=== PATIENT | male | born 1995 | race African-American/Black ===

== ENCOUNTER 2021-04-20 14:45 | Inpatient (IN) | payer SELFPAY ==
[~2021-04-20] VITALS: Ht 182.9 cm; Wt 104.3 kg
[2021-04-20 19:12] LABS: BASOPHILS % 0.4 % (0.0-2.0); EOSINOPHILS % 0.8 % (0.0-5.0); HEMATOCRIT. 48.9 % (42.0-52.0); HEMOGLOBIN. 16.2 g/dL (14.0-18.0); LYMPHOCYTES % 30.9 % (20.0-50.0); MEAN CORPUSCULAR HEMOGLOBIN 27.6 pg (28.0-32.0); MEAN CORPUSCULAR VOLUME 83.3 fL (80.0-94.0); MEAN PLATELET VOLUME 9.5 fl (7.4-10.4); MONOCYTES % 6.9 % (2.0-8.0); PLATELET 202 x1000/uL (130-400); RED BLOOD CELL COUNT 5.87 mill/uL (4.7-6.1); RED CELL DISTRIBUTION WIDTH 13.7 % (11.6-14.6)
[2021-04-20 19:21] LABS: CHLORIDE 108 mEq/L (98-107)
[2021-04-20 19:28] LABS: ETHANOL BLOOD < 10 mg/dL
[2021-04-20 20:05] LABS: CLARITY URINE CLEAR (CLEAR); COLOR URINE YELLOW (YELLOW); KETONES URINE TRACE (NEGATIVE); LEUKOCYTE ESTERASE URINE NEGATIVE (NEGATIVE); NITRITE URINE NEGATIVE (NEGATIVE); OCCULT BLOOD URINE NEGATIVE (NEGATIVE); PH URINE 5.5 (4.5-8.0); PROTEIN URINE NEGATIVE (NEGATIVE); SPECIFIC GRAVITY URINE 1.023 (1.005-1.030)
[2021-04-20 20:28] LABS: *AMPHETAMINES SCREEN URINE NEGATIVE (NEGATIVE); *BARBITURATES SCREEN URINE NEGATIVE (NEGATIVE)
[2021-04-20 20:29] LABS: *BENZODIAZEPINES SCREEN URINE NEGATIVE (NEGATIVE); *COCAINE SCREEN URINE NEGATIVE (NEGATIVE); CANNABINOID URINE SCREEN PRESUMTIVE POSITIVE (NEGATIVE); METHADONE URINE SCREEN NEGATIVE (NEGATIVE); OPIATES URINE SCREEN NEGATIVE (NEGATIVE); PHENCYCLIDINE URINE SCREEN NEGATIVE (NEGATIVE)
[2021-04-21 16:00] VITALS: BP 125/79
[2021-04-21] MEDS ORDERED: LORAZEPAM 2MG/ML CPJ IV PRN (16:15)
[2021-04-21] MEDS ORDERED: ONDANSETRON HCL 4MG/2ML INJ IV PRN (16:15)
[2021-04-21] MEDS ORDERED: ACETAMINOPHEN 325MG TABLET PO PRN (16:15)
[2021-04-21 16:56] VITALS: BP 125/79
[2021-04-21] MEDS ORDERED: ARIP30TA2 MT (17:10)
[2021-04-21] MEDS ORDERED: BENZ1TAB7 MT (17:11)
[2021-04-21 20:00] VITALS: BP 115/58
[2021-04-22] VITALS (7 sets, daily range): BP systolic 104–139; BP diastolic 55–88
[2021-04-23 04:00] VITALS: BP 121/58
[2021-04-23 08:00] VITALS: BP 119/76
[2021-04-23 12:00] VITALS: BP 109/60
[2021-04-23 16:00] VITALS: BP 108/72
[2021-04-23 20:00] VITALS: BP 115/57
[2021-04-24] VITALS: BP 105/66
[2021-04-24 04:00] VITALS: BP 100/50
[2021-04-24 08:00] VITALS: BP 100/50
[2021-04-24 11:07] VITALS: BP 100/56
[2021-04-24 12:00] VITALS: BP 105/50
== END 2021-04-24 13:15 | disposition home or self-care (01) | DRG 751 ==
LOC: ER 15:43 → EDBD 04-21 10:32 → 8WST 04-21 10:32 → ENRESERV 04-21 14:40
PROVIDERS: ADMIT Internal Medicine Nephrology; ATTEND Internal Medicine Nephrology
DX: F23 Brief psychotic disorder (principal); F12.90 Cannabis use, unspecified, uncomplicated; Z79.899 Other long term (current) drug therapy
CPT/HCPCS: 36415; 80053; 80305; 80320; 81003; 82962; 85025; 99285; G0480

== ENCOUNTER 2021-11-08 10:28 | Emergency (ER) | payer MEDICAID ==
[~2021-11-08] VITALS: Ht 182.9 cm; Wt 104.0 kg
[~2021-11-08 10:28] MED LIST: ARIP30TA2 MT; BENZ1TAB7 MT
[2021-11-08 11:48] LABS: CLARITY URINE CLEAR (CLEAR); COLOR URINE YELLOW (YELLOW); KETONES URINE TRACE (NEGATIVE); LEUKOCYTE ESTERASE URINE NEGATIVE (NEGATIVE); NITRITE URINE NEGATIVE (NEGATIVE); OCCULT BLOOD URINE NEGATIVE (NEGATIVE); PROTEIN URINE NEGATIVE (NEGATIVE)
[2021-11-08 11:56] LABS: BASOPHILS % 0.4 % (0.0-2.0); CHLORIDE 108 mEq/L (98-107); EOSINOPHILS % 1.2 % (0.0-5.0); HEMATOCRIT. 42.2 % (42.0-52.0); MEAN CORPUSCULAR HEMOGLOBIN 27.6 pg (28.0-32.0); MEAN CORPUSCULAR VOLUME 83.5 fL (80.0-94.0); MEAN PLATELET VOLUME 9.4 fl (7.4-10.4); MONOCYTES % 8.3 % (2.0-8.0); NEUTROPHILS % 64.1 % (40.0-76.0); PLATELET 210 x1000/uL (130-400); RED BLOOD CELL COUNT 5.06 mill/uL (4.7-6.1)
[2021-11-08] MEDS ORDERED: CLOT15CR27 TP (12:46)
[2021-11-08] MEDS ORDERED: CLAR10 PO (12:46)
[2021-11-08 12:55] VITALS: BP 135/62
[2021-11-11 04:10] LABS: NEISSERIA GONORRHOEAE NAA Negative (Negative)
== END 2021-11-08 12:56 | disposition home or self-care (01) ==
LOC: ER 10:28
DX: N48.1 Balanitis (principal); N48.89 Other specified disorders of penis; R73.03 Prediabetes; Z88.0 Allergy status to penicillin
CPT/HCPCS: 36415; 80048; 81003; 85025; 86592; 87491; 87591; 99283